=== PATIENT | male | born 1990 | race Caucasian/White ===

== ENCOUNTER 2023-10-14 10:12 | Emergency (ER) | payer OTHER ==
[~2023-10-14] VITALS: Ht 188 cm; Wt 133.4 kg
[2023-10-14 11:34] VITALS: BP 136/71; PULSE 77; RESP 17; TEMP 98.3; O2SAT 95
== END 2023-10-14 11:40 | disposition home or self-care (01) ==
LOC: ER 10:12
DX: S93.602A Unspecified sprain of left foot, initial encounter (principal); X58.XXXA Exposure to other specified factors, initial encounter; Y93.02 Activity, running; Y92.69 Other specified industrial and construction area as the place of occurrence of the external cause; Y99.8 Other external cause status
CPT/HCPCS: 73630